=== PATIENT | male | born 1950 | race Caucasian/White ===

== ENCOUNTER 2017-02-17 09:29 | Emergency (ER) | payer MEDICARE ==
[~2017-02-17] VITALS: Ht 177.8 cm; Wt 136.1 kg
[~2017-02-17 09:29] MED LIST: /METO25TAB PO; /MOXI40TA PO; ACET-654 PO; ALBU17IN INH; BUSP5TA PO; D31000TA PO; FERR325T3 PO; HYDR-3713 PO; HYDR12.55 PO; IPRA2IN INH; LEVA750T PO; METO50TA2 PO; MULTTAB4 PO; POLYOPD OU; SPIR1CAP INH; TAMS0.4C PO; TAMS0.4C2 PO; TRAZ100T4 PO; VENTAER IN; VITMTA PO
[2017-02-17] MEDS ORDERED: CLAR10CA3 PO (09:48)
[2017-02-17] MEDS ORDERED: TRAZ100T4 PO (09:48)
[2017-02-17] MEDS: IPRATROPIUM 0.5MG/ALBUTEROL 2.5MG INH SOL UD 3ML (DUONEB)(J7620) NEB PRN ×3 (10:05→10:19)
--- NOTE | 2017-02-17 10:11 | REP ---
Clinical: Dyspnea. Cough. Technique: PA and lateral. Comparison: 03/14/2016. Findings: Mediastinum and cardiac silhouette are normal. Lung smith demonstrate chronic bibasilar changes no obvious acute consolidation, effusion, or pneumothorax. Skeletal structures demonstrate age-related degenerative changes. Impression: Chronic-appearing stable changes. No obvious acute cardiopulmonary process. Signed by Senthil Herbert MD 02/17/2017 10:02 A
[2017-02-17 10:27] LABS: MEAN CORPUSCULAR HEMOGLOBIN 32.4 pg (27.0-33.0); MEAN CORPUSCULAR HGB CONC 32.5 g/dl (32.0-36.5); MEAN CORPUSCULAR VOLUME 99.9 fl (80.0-96.0); PLATELET COUNT, AUTOMATED 108 k/mm3 (150-450); RED CELL DISTRIBUTION WIDTH 12.7 % (11.5-14.5); WHITE BLOOD COUNT 4.2 K/mm3 (4.0-10.0)
[2017-02-17 10:55] LABS: ANION GAP 8 MEQ/L (8-16); BLOOD UREA NITROGEN 12 MG/DL (7-18); CALCIUM LEVEL 7.8 MG/DL (8.8-10.2); CARBON DIOXIDE LEVEL 26 MEQ/L (21-32); CHLORIDE LEVEL 107 MEQ/L (98-107); CREATININE FOR GFR 0.88 MG/DL (0.70-1.30); GLOMERULAR FILTRATION RATE > 60.0 (>49); GLUCOSE, FASTING 133 MG/DL (80-110); POTASSIUM SERUM 3.8 MEQ/L (3.5-5.1); SODIUM LEVEL 141 MEQ/L (136-145)
[2017-02-17 10:58] LABS: BANDS 1 % (< 11); BASOPHILS 1 % (0-4)
[2017-02-17] MEDS ORDERED: methylPREDNISolone INJ 125 MG/2 ML VIAL (J2930) IV ONE (11:15)
[2017-02-17 11:45] VITALS: O2SAT 97
[2017-02-17] MEDS ORDERED: IPRASOL4 IN (11:53)
[2017-02-17] MEDS ORDERED: DOXY100C37 PO (11:54)
[2017-02-17] MEDS ORDERED: PRED50TA PO (11:54)
[2017-02-17] MEDS ORDERED: NEBUMIS2 NEB (12:00)
[2017-02-17 12:38] VITALS: BP 114/57
--- NOTE | 2017-02-18 21:23 | ECGEPIP ---
Stationary ECG Study [facility] - ED Test Date: 2017-02-17 Pat Name: ARVIND BURR Department: Room: - Gender: M Digital Strategy Director: ct : 1950 Requested By: Janice Mora Order Number: [id number] Reading MD: Janice Mora Measurements Intervals [place] Rate: 78 P: 56 TN: 225 QRS: 53 QRSD: 95 T: 120 QT: 335 QTc: 383 Interpretive Statements SINUS RHYTHM WITH FIRST DEGREE AV BLOCK MODERATE T-WAVE ABNORMALITY, CONSIDER LATERAL ISCHEMIA COMPARED 03/14/16 Electronically Signed On 02-18-2017 21:23:18 EDT by Janice Mora
== END 2017-02-17 12:44 | disposition home or self-care (01) ==
LOC: M ED 10:08
DX: J20.9 Acute bronchitis, unspecified (principal); I25.10 Atherosclerotic heart disease of native coronary artery without angina pectoris; I10 Essential (primary) hypertension; E78.5 Hyperlipidemia, unspecified; G47.30 Sleep apnea, unspecified; N40.0 Benign prostatic hyperplasia without lower urinary tract symptoms; Z98.84 Bariatric surgery status; Z91.030 Bee allergy status; Z79.899 Other long term (current) drug therapy; E11.9 Type 2 diabetes mellitus without complications
CPT/HCPCS: 36415; 71020; 80048; 82550; 82553; 83605; 83880; 84484; 85025; 87040; 87804; 93005; 93041; 94640; 94760; 96374; 99285; J2930

== ENCOUNTER 2018-01-15 18:30 | Inpatient (IN) | payer MEDICARE ==
[2018-01-15 19:07] LABS: HEMATOCRIT 31.9 % (42.0-52.0); MEAN CORPUSCULAR HEMOGLOBIN 32.7 pg (27.0-33.0); MEAN CORPUSCULAR HGB CONC 34.5 g/dl (32.0-36.5); MEAN CORPUSCULAR VOLUME 94.9 fl (80.0-96.0); PLATELET COUNT, AUTOMATED 272 10^3/uL (150-450); RED BLOOD COUNT 3.36 10^6/uL (4.30-6.10); RED CELL DISTRIBUTION WIDTH 13.4 % (11.5-14.5)
[2018-01-15 19:10] LABS: ADD MANUAL DIFFER YES; DIFF SLIDE NUMBER 321; POSITIVE DIFF POS FLAG; POSITIVE MORPH POS FLAG
[2018-01-15 19:17] LABS: INR 1.21; PROTHROMBIN TIME 15.5 SECONDS (12.4-14.5)
[2018-01-15 19:34] LABS: ALBUMIN 2.6 GM/DL (3.2-5.2); ALBUMIN/GLOBULIN RATIO 0.63 (1.00-1.93); ALKALINE PHOSPHATASE 479 U/L (45-117); ALT/SGPT 56 U/L (12-78); ANION GAP 12 MEQ/L (8-16); AST/SGOT 33 U/L (7-37); BILIRUBIN,DIRECT 0.7 MG/DL (0.0-0.2); BILIRUBIN,TOTAL 1.4 MG/DL (0.2-1.0); BLOOD UREA NITROGEN 27 MG/DL (7-18); CALCIUM LEVEL 8.2 MG/DL (8.8-10.2); CARBON DIOXIDE LEVEL 22 MEQ/L (21-32); CHLORIDE LEVEL 100 MEQ/L (98-107); CPK CREATINE PHOSPHOKINASE 43 U/L (39-308); CREATININE FOR GFR 1.07 MG/DL (0.70-1.30); GLOMERULAR FILTRATION RATE > 60.0 (>49); GLUCOSE, FASTING 109 MG/DL (70-100); LIPASE 66 U/L (73-393); POTASSIUM SERUM 4.4 MEQ/L (3.5-5.1); SODIUM LEVEL 134 MEQ/L (136-145); TOTAL PROTEIN 6.7 GM/DL (6.4-8.2); TROPONIN I < 0.02 NG/ML (< 0.10)
[2018-01-15 19:35] LABS: NT-PRO BNP 428 PG/ML (<125)
[2018-01-15 19:40] LABS: MB/CK RELATIVE INDEX 2.32 (< OR =4)
[2018-01-15 19:44] LABS: BANDS 3 % (< 11); EOSINOPHILS 2 % (0-5); LYMPHOCYTES 10 % (16-52); NEUTROPHILS 85 % (35-75)
[2018-01-15 19:45] LABS: PLATELET CLUMPS SMALL AMT; PLATELET ESTIMATE NORMAL (NORMAL); TOXIC VACUOLATION 1+
[2018-01-15] MEDS: NS 1,000 ML IV (20:00)
[2018-01-15 20:24] LABS: BEDSIDE GLUCOSE 113 MG/DL (80-115)
[2018-01-15] MEDS: GASTROGRAFIN SOLUTION 30ML PO ×2 (20:45→20:50)
[2018-01-15] MEDS: PANTOPRAZOLE 40MG INJ (PROTONIX) (C9113) IV (21:00)
[2018-01-15] MEDS ORDERED: ISOVUE-370 76% 100ML VIAL (Q9967) As Ordered (22:35)
[2018-01-15] MEDS: NS IV (23:45)
[2018-01-15] MEDS: DILUENT IV (23:45)
[2018-01-16] MEDS: NS 1,000 ML IV ×3 (01:07→09:33)
[2018-01-16 01:18] LABS: LACTIC ACID SEPSIS PROTOCOL 1.3 MMOL/L (0.4-2.0)
[2018-01-16 01:23] LABS: ERYTHROCYTE SEDIMENTATION RATE > 140 mm/hr (0-20)
[2018-01-16] MEDS ORDERED: GLUCOSE 4 GM CHEW TABLET PO (01:30)
[2018-01-16] MEDS ORDERED: DEXTROSE 50% 50 ML SYRINGE IV (01:30)
[2018-01-16] MEDS: traZODone 100 MG TAB PO (01:30)
[2018-01-16] MEDS ORDERED: GLUCAGON FOR INJ 1 MG VIAL (J1610) SC (01:30)
[2018-01-16 02:13] LABS: KETONE, URINE AUTO RFX NEGATIVE (NEGATIVE); LEUKOCYTE ESTERASE UR AUTO RFX NEGATIVE (NEGATIVE); NITRITE, URINE AUTO RFX NEGATIVE (NEGATIVE); RBC, URINE AUTO RFX 11 /HPF (0-3); SPECIFIC GRAVITY UR AUTO RFX 1.033 (1.002-1.035); SQUAM EPITHELIAL CELL UR AURFX 0 /HPF (0-6); WBC, URINE AUTO RFX 1 /HPF (0-3)
[2018-01-16] MEDS: PIPERACILLIN/TAZOBACTAM SOD 3.375 GM in APPROPRIATE DILUENT 1 EA IV ×3 (05:42→17:34)
[2018-01-16] MEDS: HEPARIN SOD (PORCINE) 5000 UNITS/ML VIAL SC ×3 (05:45→22:00)
[2018-01-16 05:50] LABS: BASO % 0.1 % (0.0-1.0); EOS # 0.1 10^3/uL (0.0-0.50); EOS % 0.3 % (0.0-3.0); HEMATOCRIT 28.6 % (42.0-52.0); HEMOGLOBIN 9.7 g/dl (14.0-18.0); LYMPH # 1.2 10^3/uL (1.5-4.5); LYMPH % 8.1 % (24.0-44.0); MEAN CORPUSCULAR HEMOGLOBIN 32.4 pg (27.0-33.0); MEAN CORPUSCULAR HGB CONC 33.9 g/dl (32.0-36.5); MEAN CORPUSCULAR VOLUME 95.7 fl (80.0-96.0); MONO # 0.8 10^3/uL (0.0-0.8); MONO % 5.8 % (0.0-5.0); NEUTROPHILS # 12.3 10^3/uL (1.8-7.7); NEUTROPHILS % 84.7 % (36.0-66.0); PLATELET COUNT, AUTOMATED 264 10^3/uL (150-450); RED BLOOD COUNT 2.99 10^6/uL (4.30-6.10); RED CELL DISTRIBUTION WIDTH 13.6 % (11.5-14.5); WHITE BLOOD COUNT 14.5 10^3/uL (4.0-10.0)
[2018-01-16 05:59] LABS: LIPASE 48 U/L (73-393)
[2018-01-16 06:04] LABS: ALBUMIN 2.4 GM/DL (3.2-5.2); ALBUMIN/GLOBULIN RATIO 0.69 (1.00-1.93); ALKALINE PHOSPHATASE 382 U/L (45-117); ALT/SGPT 50 U/L (12-78); ANION GAP 6 MEQ/L (8-16); AST/SGOT 17 U/L (7-37); BLOOD UREA NITROGEN 26 MG/DL (7-18); CALCIUM LEVEL 7.8 MG/DL (8.8-10.2); CARBON DIOXIDE LEVEL 25 MEQ/L (21-32); CHLORIDE LEVEL 104 MEQ/L (98-107); CREATININE FOR GFR 0.99 MG/DL (0.70-1.30); GAMMA GLUTAMYLTRANSPEPTIDASE 495 U/L (15-85); GLOMERULAR FILTRATION RATE > 60.0 (>49); GLUCOSE, FASTING 136 MG/DL (70-100); MAGNESIUM LEVEL 1.9 MG/DL (1.8-2.4); POTASSIUM SERUM 4.4 MEQ/L (3.5-5.1); SODIUM LEVEL 135 MEQ/L (136-145); TOTAL PROTEIN 5.9 GM/DL (6.4-8.2)
[2018-01-16] MEDS: HumaLOG INSULIN (NovoLOG) PER UNIT SC ×4 (07:30→20:20)
[2018-01-16] MEDS: TAMSULOSIN 0.4 MG CAP PO (08:33)
[2018-01-16] MEDS: PANTOPRAZOLE 40MG INJ (PROTONIX) (C9113) IV ×2 (08:33→20:22)
[2018-01-16] MEDS: MULTIVITAMINS/MINERALS THERAP 1 TAB PO (08:33)
[2018-01-16] MEDS: ASPIRIN 81 MG ENTERIC TAB PO (08:33)
[2018-01-16] MEDS ORDERED: PANTOPRAZOLE 40MG TAB (PROTONIX) PO (09:00)
[2018-01-16] MEDS: ACETAMINOPHEN TAB 650MG DOSE (2X325MG) PO (12:01)
[2018-01-16] MEDS: PERCOCET 5MG/325MG TAB PO ×2 (13:08→18:26)
[2018-01-16] MEDS: LORazepam 2 MG/ML VIAL (J2060) IV (13:39)
[2018-01-16] MEDS ORDERED: PROHANCE 279.3MG/ML 15ML VIAL (A9576) As Ordered (13:58)
[2018-01-16 17:54] LABS: BEDSIDE GLUCOSE 101 MG/DL (80-115)
[2018-01-16 17:54] LABS: BEDSIDE GLUCOSE 131 MG/DL (80-115)
[2018-01-16 20:18] LABS: BEDSIDE GLUCOSE 217 MG/DL (80-115)
[2018-01-16] MEDS: ATORVASTATIN 20 MG TAB PO (20:22)
[2018-01-16] MEDS ORDERED: HumaLOG INSULIN (NovoLOG) PER UNIT SC (21:00)
[2018-01-17] MEDS: PIPERACILLIN/TAZOBACTAM SOD 3.375 GM in APPROPRIATE DILUENT 1 EA IV ×4 (00:18→20:47)
[2018-01-17] MEDS: NS 1,000 ML IV ×4 (00:18→15:40)
[2018-01-17] MEDS: PERCOCET 5MG/325MG TAB PO ×2 (03:50→16:00)
[2018-01-17 05:03] LABS: HEMATOCRIT 26.9 % (42.0-52.0); MEAN CORPUSCULAR HEMOGLOBIN 32.4 pg (27.0-33.0); MEAN CORPUSCULAR HGB CONC 33.5 g/dl (32.0-36.5); MEAN CORPUSCULAR VOLUME 96.8 fl (80.0-96.0); PLATELET COUNT, AUTOMATED 204 10^3/uL (150-450); RED BLOOD COUNT 2.78 10^6/uL (4.30-6.10); RED CELL DISTRIBUTION WIDTH 13.7 % (11.5-14.5); WHITE BLOOD COUNT 9.6 10^3/uL (4.0-10.0)
[2018-01-17 05:31] LABS: ALBUMIN/GLOBULIN RATIO 0.54 (1.00-1.93); ALKALINE PHOSPHATASE 351 U/L (45-117); ALT/SGPT 35 U/L (12-78); ANION GAP 8 MEQ/L (8-16); AST/SGOT 17 U/L (7-37); BILIRUBIN,TOTAL 0.7 MG/DL (0.2-1.0); BLOOD UREA NITROGEN 20 MG/DL (7-18); CALCIUM LEVEL 7.7 MG/DL (8.8-10.2); CARBON DIOXIDE LEVEL 23 MEQ/L (21-32); CHLORIDE LEVEL 108 MEQ/L (98-107); CREATININE FOR GFR 0.78 MG/DL (0.70-1.30); GLOMERULAR FILTRATION RATE > 60.0 (>49); GLUCOSE, FASTING 115 MG/DL (70-100); MAGNESIUM LEVEL 2.2 MG/DL (1.8-2.4); POTASSIUM SERUM 3.8 MEQ/L (3.5-5.1); SODIUM LEVEL 139 MEQ/L (136-145); TOTAL PROTEIN 5.7 GM/DL (6.4-8.2)
[2018-01-17] MEDS: HEPARIN SOD (PORCINE) 5000 UNITS/ML VIAL SC ×3 (06:00→23:05)
[2018-01-17] MEDS: HumaLOG INSULIN (NovoLOG) PER UNIT SC ×4 (07:30→20:47)
[2018-01-17 08:36] LABS: ALPHA FETOPROTEIN TUMOR QUANT < 1.3 NG/ML (<8.1)
[2018-01-17 08:37] LABS: CARCINOEMBRYONIC ANTIGEN < 0.5 NG/ML (<2.5)
[2018-01-17] MEDS: TAMSULOSIN 0.4 MG CAP PO (09:03)
[2018-01-17] MEDS: PANTOPRAZOLE 40MG INJ (PROTONIX) (C9113) IV ×2 (09:03→20:48)
[2018-01-17] MEDS: ASPIRIN 81 MG ENTERIC TAB PO (09:03)
[2018-01-17 09:06] LABS: CA19-9 TUMOR MARKER,CARBOHYDRA 55.3 U/ML (<35.0)
[2018-01-17 10:20] LABS: HEPATITIS B SURFACE ANTIGEN NEGATIVE (NEGATIVE)
[2018-01-17 10:48] LABS: HEPATITIS C VIRUS ABY INDEX 0.1 INDEX (<0.8)
[2018-01-17 10:48] LABS: HEPATITIS B CORE ANTIBODY IGM NEGATIVE (NEGATIVE)
[2018-01-17 10:50] LABS: HEPATITIS A ANTIBODY IGM NEGATIVE (NEGATIVE)
[2018-01-17 11:35] LABS: HEMATOCRIT 28.2 % (42.0-52.0); HEMOGLOBIN 9.4 g/dl (14.0-18.0)
[2018-01-17 12:34] LABS: BEDSIDE GLUCOSE 109 MG/DL (80-115)
[2018-01-17] MEDS ORDERED: LIDOCAINE 2% INJ 100 MG/5 ML SDV (FOR ANES.) As Ordered (13:47)
[2018-01-17] MEDS ORDERED: PROPOFOL 200 MG/20 ML VIAL As Ordered ×2 (13:47→13:59)
[2018-01-17] MEDS: MULTIVITAMINS/MINERALS THERAP 1 TAB PO (15:40)
[2018-01-17 17:38] LABS: BEDSIDE GLUCOSE 112 MG/DL (80-115)
[2018-01-17] MEDS: ATORVASTATIN 20 MG TAB PO (20:47)
[2018-01-17 21:00] LABS: BEDSIDE GLUCOSE 129 MG/DL (80-115)
[2018-01-18] MEDS: PIPERACILLIN/TAZOBACTAM SOD 3.375 GM in APPROPRIATE DILUENT 1 EA IV ×5 (00:57→23:48)
[2018-01-18 05:49] LABS: HEMOGLOBIN 9.3 g/dl (14.0-18.0); MEAN CORPUSCULAR HEMOGLOBIN 32.5 pg (27.0-33.0); MEAN CORPUSCULAR HGB CONC 33.2 g/dl (32.0-36.5); MEAN CORPUSCULAR VOLUME 97.9 fl (80.0-96.0); PLATELET COUNT, AUTOMATED 187 10^3/uL (150-450); RED BLOOD COUNT 2.86 10^6/uL (4.30-6.10); RED CELL DISTRIBUTION WIDTH 13.5 % (11.5-14.5); WHITE BLOOD COUNT 7.1 10^3/uL (4.0-10.0)
[2018-01-18 06:07] LABS: ALBUMIN 2.2 GM/DL (3.2-5.2); ALBUMIN/GLOBULIN RATIO 0.58 (1.00-1.93); ALKALINE PHOSPHATASE 300 U/L (45-117); ALT/SGPT 33 U/L (12-78); ANION GAP 8 MEQ/L (8-16); AST/SGOT 16 U/L (7-37); BILIRUBIN,TOTAL 0.7 MG/DL (0.2-1.0); BLOOD UREA NITROGEN 11 MG/DL (7-18); CARBON DIOXIDE LEVEL 24 MEQ/L (21-32); CHLORIDE LEVEL 111 MEQ/L (98-107); CREATININE FOR GFR 0.71 MG/DL (0.70-1.30); GLOMERULAR FILTRATION RATE > 60.0 (>49); GLUCOSE, FASTING 107 MG/DL (70-100); MAGNESIUM LEVEL 2.2 MG/DL (1.8-2.4); POTASSIUM SERUM 3.9 MEQ/L (3.5-5.1); SODIUM LEVEL 143 MEQ/L (136-145)
[2018-01-18] MEDS: HEPARIN SOD (PORCINE) 5000 UNITS/ML VIAL SC ×3 (06:46→21:11)
[2018-01-18] MEDS: ASPIRIN 81 MG ENTERIC TAB PO (07:39)
[2018-01-18] MEDS: MULTIVITAMINS/MINERALS THERAP 1 TAB PO (07:39)
[2018-01-18] MEDS: TAMSULOSIN 0.4 MG CAP PO (07:39)
[2018-01-18] MEDS: PANTOPRAZOLE 40MG INJ (PROTONIX) (C9113) IV ×2 (07:39→21:11)
[2018-01-18] MEDS: PERCOCET 5MG/325MG TAB PO ×3 (07:40→16:46)
[2018-01-18] MEDS: HumaLOG INSULIN (NovoLOG) PER UNIT SC ×4 (09:00→21:00)
[2018-01-18 11:42] LABS: BEDSIDE GLUCOSE 148 MG/DL (80-115)
[2018-01-18] MEDS ORDERED: ISOVUE-370 76% 100ML VIAL (Q9967) As Ordered (14:31)
[2018-01-18 17:13] LABS: BEDSIDE GLUCOSE 106 MG/DL (80-115)
[2018-01-18 20:21] LABS: BEDSIDE GLUCOSE 157 MG/DL (80-115)
[2018-01-18] MEDS: ATORVASTATIN 20 MG TAB PO (21:10)
[2018-01-19] MEDS: HEPARIN SOD (PORCINE) 5000 UNITS/ML VIAL SC ×3 (05:59→21:17)
[2018-01-19] MEDS: PIPERACILLIN/TAZOBACTAM SOD 3.375 GM in APPROPRIATE DILUENT 1 EA IV ×3 (05:59→18:44)
[2018-01-19 06:12] LABS: HEMATOCRIT 29.9 % (42.0-52.0); HEMOGLOBIN 9.9 g/dl (14.0-18.0); MEAN CORPUSCULAR HEMOGLOBIN 31.7 pg (27.0-33.0); MEAN CORPUSCULAR HGB CONC 33.1 g/dl (32.0-36.5); MEAN CORPUSCULAR VOLUME 95.8 fl (80.0-96.0); PLATELET COUNT, AUTOMATED 216 10^3/uL (150-450); RED BLOOD COUNT 3.12 10^6/uL (4.30-6.10); RED CELL DISTRIBUTION WIDTH 13.4 % (11.5-14.5); WHITE BLOOD COUNT 5.3 10^3/uL (4.0-10.0)
[2018-01-19 06:34] LABS: ALBUMIN 2.4 GM/DL (3.2-5.2); ALBUMIN/GLOBULIN RATIO 0.59 (1.00-1.93); ALKALINE PHOSPHATASE 288 U/L (45-117); ALT/SGPT 30 U/L (12-78); ANION GAP 9 MEQ/L (8-16); AST/SGOT 21 U/L (7-37); BILIRUBIN,TOTAL 0.7 MG/DL (0.2-1.0); BLOOD UREA NITROGEN 7 MG/DL (7-18); CALCIUM LEVEL 8.4 MG/DL (8.8-10.2); CARBON DIOXIDE LEVEL 25 MEQ/L (21-32); CHLORIDE LEVEL 109 MEQ/L (98-107); GLOMERULAR FILTRATION RATE > 60.0 (>49); GLUCOSE, FASTING 109 MG/DL (70-100); POTASSIUM SERUM 3.6 MEQ/L (3.5-5.1); SODIUM LEVEL 143 MEQ/L (136-145); TOTAL PROTEIN 6.5 GM/DL (6.4-8.2)
[2018-01-19] MEDS: HumaLOG INSULIN (NovoLOG) PER UNIT SC ×4 (07:35→21:00)
[2018-01-19] MEDS: PANTOPRAZOLE 40MG INJ (PROTONIX) (C9113) IV ×2 (07:48→21:17)
[2018-01-19] MEDS: TAMSULOSIN 0.4 MG CAP PO (07:49)
[2018-01-19] MEDS: ASPIRIN 81 MG ENTERIC TAB PO (07:49)
[2018-01-19] MEDS: PERCOCET 5MG/325MG TAB PO ×3 (07:49→16:35)
[2018-01-19] MEDS: MULTIVITAMINS/MINERALS THERAP 1 TAB PO (07:49)
[2018-01-19] MEDS: ATORVASTATIN 20 MG TAB PO (21:16)
[2018-01-20] MEDS: PIPERACILLIN/TAZOBACTAM SOD 3.375 GM in APPROPRIATE DILUENT 1 EA IV ×3 (00:23→12:15)
[2018-01-20 05:22] LABS: HEMATOCRIT 29.7 % (42.0-52.0); HEMOGLOBIN 9.8 g/dl (14.0-18.0); MEAN CORPUSCULAR HEMOGLOBIN 31.7 pg (27.0-33.0); MEAN CORPUSCULAR VOLUME 96.1 fl (80.0-96.0); PLATELET COUNT, AUTOMATED 207 10^3/uL (150-450); RED BLOOD COUNT 3.09 10^6/uL (4.30-6.10); RED CELL DISTRIBUTION WIDTH 13.2 % (11.5-14.5); WHITE BLOOD COUNT 5.1 10^3/uL (4.0-10.0)
[2018-01-20 05:41] LABS: ALBUMIN 2.4 GM/DL (3.2-5.2); ALBUMIN/GLOBULIN RATIO 0.63 (1.00-1.93); ALKALINE PHOSPHATASE 246 U/L (45-117); ALT/SGPT 28 U/L (12-78); ANION GAP 8 MEQ/L (8-16); AST/SGOT 22 U/L (7-37); BILIRUBIN,TOTAL 0.6 MG/DL (0.2-1.0); BLOOD UREA NITROGEN 6 MG/DL (7-18); CARBON DIOXIDE LEVEL 25 MEQ/L (21-32); CHLORIDE LEVEL 109 MEQ/L (98-107); CREATININE FOR GFR 0.71 MG/DL (0.70-1.30); GLOMERULAR FILTRATION RATE > 60.0 (>49); GLUCOSE, FASTING 112 MG/DL (70-100); MAGNESIUM LEVEL 1.9 MG/DL (1.8-2.4); POTASSIUM SERUM 3.8 MEQ/L (3.5-5.1); SODIUM LEVEL 142 MEQ/L (136-145); TOTAL PROTEIN 6.2 GM/DL (6.4-8.2)
[2018-01-20] MEDS: HEPARIN SOD (PORCINE) 5000 UNITS/ML VIAL SC ×2 (05:44→14:00)
[2018-01-20] MEDS: PANTOPRAZOLE 40MG INJ (PROTONIX) (C9113) IV (08:43)
[2018-01-20] MEDS: HumaLOG INSULIN (NovoLOG) PER UNIT SC ×2 (08:44→12:15)
[2018-01-20] MEDS: MULTIVITAMINS/MINERALS THERAP 1 TAB PO (08:44)
[2018-01-20] MEDS: TAMSULOSIN 0.4 MG CAP PO (08:44)
[2018-01-20] MEDS: ASPIRIN 81 MG ENTERIC TAB PO (08:44)
[2018-01-20 11:47] LABS: BEDSIDE GLUCOSE 114 MG/DL (80-115)
[2018-01-20] MEDS: METOPROLOL TART 50 MG TAB PO (16:14)
[2018-01-21 01:19] LABS: BEDSIDE GLUCOSE 109 MG/DL (80-115)
[2018-01-22 00:06] LABS: ECHINOCOCCUS ANTIBODY TITER Negative (Negative)
[2018-01-23 08:11] LABS: COCCIDIOMYCOSIS ANTIBODY 1.4 IV (<=0.9); HISTOPLASMA GAL'MANNAN AG SER <0.5 (<0.5 ng/mL); HISTOPLASMOSIS ANTIBODY Negative (Neg:<1:1)
[2018-01-23 08:11] LABS: E. HISTOLYTICA SERUM ANTIBODY Negative (Negative)
== END 2018-01-20 16:41 | disposition home or self-care (01) | DRG 436 ==
LOC: M PCU 01-19 05:01 → M ED INP 01-16 01:07 → M PCU 01-16 03:03 → M ED 18:30
PROC: 0DJ08ZZ Inspection of Upper Intestinal Tract, Via Natural or Artificial Opening Endoscopic (ICD-10-PCS; principal; 2018-01-17 13:35)
DX: C22.1 Intrahepatic bile duct carcinoma (principal); Z68.41 Body mass index [BMI] 40.0-44.9, adult; K44.9 Diaphragmatic hernia without obstruction or gangrene; I95.9 Hypotension, unspecified; J44.9 Chronic obstructive pulmonary disease, unspecified; E66.01 Morbid (severe) obesity due to excess calories; C22.0 Liver cell carcinoma; E11.9 Type 2 diabetes mellitus without complications; I10 Essential (primary) hypertension; E78.5 Hyperlipidemia, unspecified; N40.0 Benign prostatic hyperplasia without lower urinary tract symptoms; G47.33 Obstructive sleep apnea (adult) (pediatric); Z98.84 Bariatric surgery status; Z79.899 Other long term (current) drug therapy; N52.9 Male erectile dysfunction, unspecified; Z79.82 Long term (current) use of aspirin

== ENCOUNTER 2018-09-10 09:19 | Day surgery (SDC) | payer OTHER, MEDICARE ==
[2018-09-10] MEDS: NS 1,000 ML IV (09:38)
[2018-09-10] MEDS ORDERED: PROPOFOL 200 MG/20 ML VIAL As Ordered ×2 (10:15→10:49)
== END 2018-09-10 11:30 | disposition home or self-care (01) ==
LOC: M OPP 09:19
DX: Z12.11 Encounter for screening for malignant neoplasm of colon (principal); K64.0 First degree hemorrhoids; K57.30 Diverticulosis of large intestine without perforation or abscess without bleeding; I10 Essential (primary) hypertension; E78.5 Hyperlipidemia, unspecified; K21.9 Gastro-esophageal reflux disease without esophagitis; R12 Heartburn; M19.90 Unspecified osteoarthritis, unspecified site; F41.9 Anxiety disorder, unspecified; F32.9 Major depressive disorder, single episode, unspecified; R06.2 Wheezing; J44.9 Chronic obstructive pulmonary disease, unspecified; G47.30 Sleep apnea, unspecified; N40.1 Benign prostatic hyperplasia with lower urinary tract symptoms; Z98.84 Bariatric surgery status; Z91.030 Bee allergy status; Z79.899 Other long term (current) drug therapy
CPT/HCPCS: G0121

== ENCOUNTER 2022-02-25 18:56 | Emergency (ER) | payer OTHER ==
[~2022-02-25] VITALS: Ht 175.3 cm; Wt 136.4 kg
[~2022-02-25 18:56] MED LIST changes: -/METO25TAB PO; -/MOXI40TA PO; +ASPI-546 PO; +ASPI-569 PO; +ATOR40TA75 PO; +AUGM875T28 PO; +AVEL1TAB2 PO; +CLAR10CA3 PO; +DOXY-443 PO; +EPIP0.3I2 INJ; +HYDR12CA PO; +IPRA0.00 IN; +IPRA0.00 INH; -LEVA750T PO; +LEVA750T7 PO; +LOVA40TA PO; +METO1TAB87 PO; -METO50TA2 PO; +METO50TA7 PO; +MULT1TAB10 PO; +NAPR1TAB86 PO; +NEBUMIS2 NEB; +NORC1TAB7 PO; +OMEP1CAP73 PO; +PERCOCET PO; +PRED50TA PO; +PROT1TAB2 PO; +PROV108A INH; +TRAZ-257 PO; -TRAZ100T4 PO
[2022-02-25] MEDS ORDERED: diphenhydrAMINE 50MG/ML VIAL (J1200) IV ONE (20:15)
[2022-02-25] MEDS ORDERED: methylPREDNISolone 125MG 2ML VIAL IV ONE (20:15)
[2022-02-25] MEDS ORDERED: FAMOTIDINE IV BAG 20 MG in IV 1 EA IV ONE (20:15)
[2022-02-25] MEDS ORDERED: FAMOTIDINE 20MG/2ML VIAL IV ONE (20:20)
[2022-02-25 22:00] VITALS: BP 178/88
[2022-02-25] MEDS ORDERED: PEPC1TAB5 PO (22:11)
[2022-02-25] MEDS ORDERED: DIPH25CA32 PO (22:11)
[2022-02-25] MEDS ORDERED: PRED20TA PO (22:11)
== END 2022-02-25 22:15 | disposition home or self-care (01) ==
LOC: M ED 18:56
DX: T78.40XA Allergy, unspecified, initial encounter (principal); E11.9 Type 2 diabetes mellitus without complications; I10 Essential (primary) hypertension; E78.5 Hyperlipidemia, unspecified; Z79.899 Other long term (current) drug therapy; Z91.030 Bee allergy status
CPT/HCPCS: 96374; 96375; 99284; J1200; J2930